=== PATIENT | female | born 1995 | race Caucasian/White ===

== ENCOUNTER 2020-05-17 23:33 | Emergency (ER) | payer MEDICAID, MEDICARE ==
[~2020-05-17] VITALS: Ht 165.1 cm; Wt 60.8 kg
[~2020-05-17 23:33] MED LIST: PREN-385 PO
--- NOTE | 2020-05-17 23:36 | NUR ---
pt ambulated to bed 6 and to the bathroom with a steady gait.
[2020-05-17 23:55] VITALS: BP 131/83
--- NOTE | 2020-05-18 | NUR ---
25 year old female coming in for episode of syncope x 1.5 hours. states does not remember the occurrence happening. pt fell head firts on toilet at home. area of trauma is right parietal region of the head. no obvious hematoma observed. pt is a/o x 4. PERRLA. no signs of neurocognitive deficit assessed. +headache and dizziness. denies any other s/sx. all other systems WNL. Dr. Yang made aware of the situation. pmhx: denies nka
--- NOTE | 2020-05-18 00:02 | NUR ---
EKG performed at by K. Physician given copy of EKG for review.
[2020-05-18 00:08] LABS: BASOPHILS % (AUTO) 0.4 % (0.0-2.0); EOSINOPHILS # (AUTO) 0.1 K/uL (0-0.4); EOSINOPHILS % (AUTO) 1.8 % (0.0-4.0); HEMATOCRIT 32.8 % (36-48); LYMPHOCYTES # (AUTO) 1.9 K/uL (2.5-16.5); LYMPHOCYTES % (AUTO) 30.1 % (20.5-51.1); MEAN CORPUSCULAR HEMOGLOBIN 27 pg (27-31); MEAN CORPUSCULAR HGB CONC 34 g/dL (33-37); MEAN CORPUSCULAR VOLUME 81.1 fL (80-94); MONOCYTES # (AUTO) 0.7 K/uL (0.8-1.0); MONOCYTES % (AUTO) 11.1 % (1.7-9.3); NEUTROPHILS # (AUTO) 3.5 K/uL (1.8-7.7); NEUTROPHILS % (AUTO) 56.6 % (42.2-75.2); PLATELET COUNT (AUTO) 211 K/uL (140-450); RED BLOOD CELL COUNT(AUTO) 4.04 MIL/uL (4.20-5.40); RED CELL DISTRIBUTION WIDTH 14.7 % (11.6-13.7); WHITE BLOOD COUNT (AUTO) 6.3 K/uL (4.8-10.8)
--- NOTE | 2020-05-18 00:16 | NUR ---
PT TAKEN TO CT VIA W/C.
[2020-05-18 00:17] LABS: CARBON DIOXIDE 26.3 mmol/L (21-32); CREATININE 0.5 mg/dL (0.6-1.3); POTASSIUM 3.3 mmol/L (3.5-5.1)
--- NOTE | 2020-05-18 00:26 | NUR ---
pt returned from CT
--- NOTE | 2020-05-18 00:45 | NUR ---
RECIVED PT A &O X 4. PT HAS C/O SALAZAR 02/05. PT REMAINS ON CARDIAC MONTIOR. PERRLA 3MM. PT ADMITS TO SENSITIVITY TO LIGHT. BED IS OCKED AND ON LOWEST POSTION.
[2020-05-18 01:09] LABS: PROTHROMBIN TIME 10.8 secs (10.8-13.4)
[2020-05-18 03:15] VITALS: BP 127/80
--- NOTE | 2020-05-18 03:15 | NUR ---
Patient discharged with v/s stable. Written and verbal after care instructions given and explained. Patient verbalized understanding. Ambulatory with steady gait. All questions addressed prior to discharge. Advised to follow up with PMD.
== END 2020-05-18 03:15 | disposition home or self-care (01) ==
LOC: MED 23:33
DX: R55 Syncope and collapse (principal); R51.9 Headache, unspecified; F17.200 Nicotine dependence, unspecified, uncomplicated; Z71.6 Tobacco abuse counseling; Z79.899 Other long term (current) drug therapy
CPT/HCPCS: 36415; 70450; 80048; 81025; 84484; 85025; 85379; 85610; 85730; 93005; 99285

== ENCOUNTER 2020-05-20 19:25 | Emergency (ER) | payer MEDICAID ==
[~2020-05-20] VITALS: Ht 165.1 cm; Wt 61.2 kg
[2020-05-20 19:38] VITALS: BP 127/94
--- NOTE | 2020-05-20 19:40 | NUR ---
To ED bed 12
--- NOTE | 2020-05-20 19:45 | NUR ---
25 YO F BIB SELF WITH C/C OF ABCESS ON RIGHT GROIN X1 MONTH WITH PAIN 10/10. PT DENIED TAKING MEDICATION FOR PAIN. ABCESS IS CLOSED, NO SIGNS OF IRRITATION, AND NO DRAINAGE. PT STATED PAIN AGGREVATES WITH WALKING AND ACTIVITY. BED LOCKED IN LOWEST POSITION, SIDE RAIL X1. HX: DENIES RX: DENIES
[2020-05-20] MEDS ORDERED: IBUPROFEN 800 MG TAB PO ONE (20:15)
[2020-05-20] MEDS ORDERED: CLINDAMYCIN 600 MG/4 ML VIAL IM ONE (20:15)
[2020-05-20] MEDS ORDERED: HYDROcodone/APAP 5/325 MG 1 TAB TAB PO ONE (20:15)
[2020-05-20] MEDS ORDERED: LIDOCAINE MPF 1% 5 ML ONE (20:18)
[2020-05-20] MEDS ORDERED: LIDOCAINE MPF 1% 20 ML ONE (20:24)
[2020-05-20] MEDS ORDERED: LIDOCAINE MPF 1% 10 MG/ML VIAL INJ ONE ×2 (20:45)
--- NOTE | 2020-05-20 21:04 | NUR ---
DISHA AT BEDSIDE PERFOMING I&D WITH VALENTIN ECHAVARRIA
--- NOTE | 2020-05-20 21:20 | NUR ---
PTS PAIN IS NOW 0/10.
[2020-05-20 21:32] VITALS: BP 141/81
--- NOTE | 2020-05-20 21:32 | NUR ---
Patient discharged with v/s stable. Written and verbal after care instructions given and explained. Patient alert, oriented and verbalized understanding of instructions. Ambulatory with steady gait. All questions addressed prior to discharge. ID band removed. Patient advised to follow up with PMD. Rx of MOTRIN, CLINDAMYCIN given. Patient educated on indication of medication including possible reaction and side effects. Opportunity to ask questions provided and answered.
== END 2020-05-20 21:32 | disposition home or self-care (01) ==
LOC: MED 19:25
DX: L02.214 Cutaneous abscess of groin (principal); F17.210 Nicotine dependence, cigarettes, uncomplicated; Z71.6 Tobacco abuse counseling; Z79.899 Other long term (current) drug therapy
CPT/HCPCS: 10060; 87075; 90471; 90715; 96372; 99284; J2001; J3490

== ENCOUNTER 2020-05-22 20:04 | Emergency (ER) | payer MEDICAID ==
[~2020-05-22] VITALS: Ht 162.6 cm; Wt 60.9 kg
[2020-05-22 20:21] VITALS: BP 135/97
--- NOTE | 2020-05-22 20:34 | NUR ---
PT WAS SEEN HERE 05/20/20 FOR I AND D OF ABSCESS TO R GROIN AREA. PACKING WAS PLACED AND PT TOLD TO COME BACK TODAY FOR RECHECK. PT STATES DISCHARGE IS YELLOW AND GREEN IN COLOR. PT C/O PAIN 05/08. PT WAS PROVIDED WITH PRESCRIPTION FRO ANTIBIOTICS AND HAS BEEN TAKING PRESCRIBED. PT PLACED IN GOWN, BED IN LOWEST POSITION AND SIDERAIL UP X 1. NKA NO HX
[2020-05-22] MEDS ORDERED: HYDROcodone/APAP 10/325 MG 1 TAB TAB PO PRN (20:40)
[2020-05-22] MEDS ORDERED: CLINDAMYCIN 600 MG/4 ML VIAL IM ONE (20:40)
[2020-05-22] MEDS ORDERED: IBUPROFEN 800 MG TAB PO ONE (20:40)
--- NOTE | 2020-05-22 21:03 | NUR ---
ASSISTED MD BAUTISTA BEDSIDE TO CHANGE PACKING. NEW DRESSING APPLIED TO SITE
[2020-05-22 21:11] VITALS: BP 135/97
== END 2020-05-22 21:10 | disposition home or self-care (01) ==
LOC: MED 20:04
DX: L02.214 Cutaneous abscess of groin (principal); Z79.899 Other long term (current) drug therapy; Z98.890 Other specified postprocedural states
CPT/HCPCS: 10060; 96372; 99283; J3490

== ENCOUNTER 2020-10-09 17:33 | Emergency (ER) | payer MEDICAID ==
[~2020-10-09] VITALS: Ht 165.1 cm; Wt 67.6 kg
[2020-10-09 17:38] VITALS: BP 161/98
--- NOTE | 2020-10-09 18:03 | NUR ---
PATIENT LEFT WITHOUT BEING SEEN BY DR. JOHNSON. NO FURTHER CARE PROVIDED FOR PATIENT.
--- NOTE | 2020-10-09 18:03 | NUR ---
CALLED PATIENT FOR A BED AND NO ON IN ER LOBBY AND NO ONE OUTSIDE IN PARKING LOT.
== END 2020-10-09 18:02 | disposition left against medical advice (07) ==
LOC: MED 17:33
DX: R56.9 Unspecified convulsions (principal); Z53.21 Procedure and treatment not carried out due to patient leaving prior to being seen by health care provider

== ENCOUNTER 2020-12-25 19:31 | Emergency (ER) | payer MEDICAID ==
[~2020-12-25] VITALS: Ht 165.1 cm; Wt 61.2 kg
[2020-12-25 19:38] VITALS: BP 143/87
[2020-12-25 20:26] LABS: BASOPHILS % (AUTO) 0.7 % (0.0-2.0); EOSINOPHILS # (AUTO) 0.3 K/uL (0-0.4); EOSINOPHILS % (AUTO) 3.7 % (0.0-4.0); HEMATOCRIT 32.2 % (36-48); HEMOGLOBIN 10.7 g/dL (12.0-16.0); LYMPHOCYTES # (AUTO) 3.1 K/uL (2.5-16.5); LYMPHOCYTES % (AUTO) 43.7 % (20.5-51.1); MEAN CORPUSCULAR HEMOGLOBIN 27 pg (27-31); MEAN CORPUSCULAR HGB CONC 33 g/dL (33-37); MEAN CORPUSCULAR VOLUME 81.8 fL (80-94); MONOCYTES # (AUTO) 0.8 K/uL (0.8-1.0); MONOCYTES % (AUTO) 10.7 % (1.7-9.3); NEUTROPHILS # (AUTO) 2.9 K/uL (1.8-7.7); NEUTROPHILS % (AUTO) 41.2 % (42.2-75.2); PLATELET COUNT (AUTO) 253 K/uL (140-450); RED BLOOD CELL COUNT(AUTO) 3.93 MIL/uL (4.20-5.40); RED CELL DISTRIBUTION WIDTH 15.3 % (11.6-13.7); WHITE BLOOD COUNT (AUTO) 7.1 K/uL (4.8-10.8)
[2020-12-25 20:35] LABS: ANION GAP 13.8 (8-16); CREATININE 0.6 mg/dL (0.6-1.3); POTASSIUM 3.8 mmol/L (3.5-5.1)
[2020-12-25 22:38] LABS: APPEARANCE,URINE HAZY (CLEAR); BILIRUBIN,URINE NEGATIVE (NEGATIVE); BLOOD, URINE TRACE-I (NEGATIVE); COLOR,URINE YELLOW (YELLOW); LEUKOCYTE ESTERASE ,URINE TRACE (NEGATIVE); NITRITE, URINE NEGATIVE (NEGATIVE); UGLUCOSE NEGATIVE (NEGATIVE)
[2020-12-25] MEDS ORDERED: NITR100C7 PO (22:44)
[2020-12-25 23:03] LABS: WBC,URINE 20-60 /HPF (0-5)
== END 2020-12-25 22:55 | disposition home or self-care (01) ==
LOC: MED 19:31
DX: O23.41 Unspecified infection of urinary tract in pregnancy, first trimester (principal); O26.891 Other specified pregnancy related conditions, first trimester; M54.5 Low back pain; Z79.899 Other long term (current) drug therapy
CPT/HCPCS: 36415; 76817; 80048; 81001; 81025; 84702; 85025; 86900; 86901; 87086; 99284

== ENCOUNTER 2023-05-12 01:00 | Emergency (ER) | payer MEDICAID ==
[~2023-05-12] VITALS: Ht 165.1 cm; Wt 65.8 kg
[~2023-05-12 01:00] MED LIST changes: +NITR100C7 PO
[2023-05-12 01:11] VITALS: BP 142/85; PULSE 102; RESP 16; TEMP 97.4; O2SAT 99
[2023-05-12] MEDS ORDERED: ACETAMINOPHEN 325 MG TAB PO ONE (02:00)
[2023-05-12 02:30] LABS: BASOPHILS % (AUTO) 0.5 % (0.0-2.0); EOSINOPHILS % (AUTO) 0.2 % (0.0-4.0); HEMATOCRIT 26.5 % (36-48); HEMOGLOBIN 8.5 g/dL (12.0-16.0); LYMPHOCYTES # (AUTO) 1.1 K/uL (2.5-16.5); LYMPHOCYTES % (AUTO) 16.4 % (20.5-51.1); MEAN CORPUSCULAR HEMOGLOBIN 23 pg (27-31); MEAN CORPUSCULAR HGB CONC 32 g/dL (33-37); MEAN CORPUSCULAR VOLUME 71.8 fL (80-94); MONOCYTES # (AUTO) 0.5 K/uL (0.8-1.0); MONOCYTES % (AUTO) 7.4 % (1.7-9.3); NEUTROPHILS # (AUTO) 4.9 K/uL (1.8-7.7); NEUTROPHILS % (AUTO) 75.5 % (42.2-75.2); PLATELET COUNT (AUTO) 292 K/uL (140-450); RED BLOOD CELL COUNT(AUTO) 3.69 MIL/uL (4.20-5.40); RED CELL DISTRIBUTION WIDTH 18.4 % (11.6-13.7); WHITE BLOOD COUNT (AUTO) 6.5 K/uL (4.8-10.8)
[2023-05-12 02:44] LABS: ALBUMIN 3.5 g/dL (3.4-5.0); ANION GAP 10.4 (8-16); CALCIUM 8.2 mg/dL (8.5-10.1); CARBON DIOXIDE 28.7 mmol/L (21-32); CREATININE 0.6 mg/dL (0.6-1.3); MAGNESIUM 1.9 mg/dL (1.8-2.4); POTASSIUM 3.1 mmol/L (3.5-5.1); TOTAL BILIRUBIN 0.3 mg/dL (0.0-1.0); TOTAL PROTEIN, SERUM 7.6 g/dL (6.4-8.2)
[2023-05-12 02:46] LABS: FLU A ANTIGEN negative (NEGATIVE); FLU B ANTIGEN negative (NEGATIVE)
[2023-05-12] MEDS ORDERED: POTASSIUM CHLORIDE 10 MEQ TABER PO ONE (02:55)
[2023-05-12] MEDS ORDERED: FERR325E14 PO (03:14)
[2023-05-12 03:40] VITALS: BP 134/87; PULSE 89; RESP 16; TEMP 97.4; O2SAT 100
== END 2023-05-12 03:40 | disposition home or self-care (01) ==
LOC: MED 01:00
DX: S00.03XA Contusion of scalp, initial encounter (principal); Z20.822 Contact with and (suspected) exposure to COVID-19; R56.9 Unspecified convulsions; E87.6 Hypokalemia; D64.9 Anemia, unspecified; X58.XXXA Exposure to other specified factors, initial encounter; Y93.89 Activity, other specified; Y92.89 Other specified places as the place of occurrence of the external cause; Y99.8 Other external cause status
CPT/HCPCS: 36415; 70450; 80053; 82550; 83735; 84703; 85025; 93005; 99284

== ENCOUNTER 2023-06-12 08:31 | Emergency (ER) | payer MEDICAID, OTHER ==
[~2023-06-12] VITALS: Ht 165.1 cm; Wt 66.7 kg
[~2023-06-12 08:31] MED LIST changes: +FERR325E14 PO
[2023-06-12 08:40] VITALS: BP 121/84; PULSE 98; RESP 20; TEMP 98.3; O2SAT 90
[2023-06-12] MEDS ORDERED: PROCHLORPERAZINE 10 MG/2 ML VIAL IVP ONE (08:55)
[2023-06-12] MEDS ORDERED: ACETAMINOPHEN EXTRA STRENGTH 500 MG TAB PO ONE (08:55)
[2023-06-12] MEDS ORDERED: NAPR-1704 PO (10:43)
[2023-06-12] MEDS ORDERED: PROC-87 PO (10:43)
[2023-06-12 10:59] VITALS: BP 121/84; PULSE 98; RESP 20; TEMP 98.3; O2SAT 90
== END 2023-06-12 10:58 | disposition home or self-care (01) ==
LOC: MED 08:31
DX: S09.90XA Unspecified injury of head, initial encounter (principal); R56.9 Unspecified convulsions; X58.XXXA Exposure to other specified factors, initial encounter; Y93.89 Activity, other specified; Y92.89 Other specified places as the place of occurrence of the external cause; Y99.8 Other external cause status
CPT/HCPCS: 70496; 81025; 96374; 99285; J0780; Q9967

== ENCOUNTER 2023-08-17 08:37 | Emergency (ER) | payer OTHER ==
[~2023-08-17] VITALS: Ht 167.6 cm; Wt 68.0 kg
[~2023-08-17 08:37] MED LIST changes: +NAPR-1704 PO; +PROC-87 PO
[2023-08-17 09:04] VITALS: BP 124/84; PULSE 111; RESP 22; TEMP 98; O2SAT 98
[2023-08-17 09:47] LABS: BASOPHILS % (AUTO) 0.6 % (0.0-2.0); EOSINOPHILS # (AUTO) 0.1 K/uL (0-0.4); EOSINOPHILS % (AUTO) 0.9 % (0.0-4.0); HEMATOCRIT 29.5 % (36-48); HEMOGLOBIN 9.6 g/dL (12.0-16.0); LYMPHOCYTES # (AUTO) 1.6 K/uL (2.5-16.5); LYMPHOCYTES % (AUTO) 24.7 % (20.5-51.1); MEAN CORPUSCULAR HEMOGLOBIN 25 pg (27-31); MEAN CORPUSCULAR HGB CONC 32 g/dL (33-37); MONOCYTES # (AUTO) 0.5 K/uL (0.8-1.0); MONOCYTES % (AUTO) 7.3 % (1.7-9.3); NEUTROPHILS # (AUTO) 4.3 K/uL (1.8-7.7); NEUTROPHILS % (AUTO) 66.5 % (42.2-75.2); PLATELET COUNT (AUTO) 306 K/uL (140-450); RED BLOOD CELL COUNT(AUTO) 3.83 MIL/uL (4.20-5.40); RED CELL DISTRIBUTION WIDTH 18.5 % (11.6-13.7); WHITE BLOOD COUNT (AUTO) 6.5 K/uL (4.8-10.8)
[2023-08-17 09:51] VITALS: BP 125/88; PULSE 100; RESP 13; TEMP 98
[2023-08-17 09:52] VITALS: O2SAT 96
[2023-08-17 10:01] LABS: ANION GAP 12.2 (8-16); CALCIUM 8.9 mg/dL (8.5-10.1); CARBON DIOXIDE 27.7 mmol/L (21-32); CREATININE 0.7 mg/dL (0.6-1.3); POTASSIUM 3.9 mmol/L (3.5-5.1)
[2023-08-17] MEDS ORDERED: MEDR10TA PO (10:58)
== END 2023-08-17 11:15 | disposition home or self-care (01) ==
LOC: MED 08:37
DX: R41.3 Other amnesia (principal); N93.8 Other specified abnormal uterine and vaginal bleeding; R42 Dizziness and giddiness; F17.200 Nicotine dependence, unspecified, uncomplicated; Z90.49 Acquired absence of other specified parts of digestive tract; Z86.69 Personal history of other diseases of the nervous system and sense organs; Z79.899 Other long term (current) drug therapy; Z79.1 Long term (current) use of non-steroidal anti-inflammatories (NSAID)
CPT/HCPCS: 36415; 80048; 81002; 81025; 85025; 99283

== ENCOUNTER 2023-09-28 21:10 | Emergency (ER) | payer OTHER ==
[~2023-09-28] VITALS: Ht 165.1 cm; Wt 65.8 kg
[~2023-09-28 21:10] MED LIST changes: +MEDR10TA PO
[2023-09-28 21:30] VITALS: BP 136/85; PULSE 66; RESP 18; TEMP 97.8; O2SAT 100
[2023-09-28 22:54] LABS: APPEARANCE,URINE CLEAR (CLEAR); BILIRUBIN,URINE NEGATIVE (NEGATIVE); BLOOD, URINE NEGATIVE (NEGATIVE); COLOR,URINE YELLOW (YELLOW); LEUKOCYTE ESTERASE ,URINE TRACE (NEGATIVE); NITRITE, URINE NEGATIVE (NEGATIVE); PROTEIN,URINE NEGATIVE (NEGATIVE); UGLUCOSE NEGATIVE (NEGATIVE); UROBILINOGEN,URINE 0.2 EU/dL (0.2 - 1)
[2023-09-28 23:05] LABS: AMPHETAMINE, URINE NEGATIVE ng/ml (NEG <=1000); BARBITURATE, URINE NEGATIVE ng/ml (NEG <=200); BENZODIAZEPINE, URINE NEGATIVE ng/mL (NEG <=200); CANNABINOID, URINE NEGATIVE ng/mL (NEG <=50); COCAINE, URINE NEGATIVE ng/mL (NEG <=300); OPIATE, URINE NEGATIVE ng/mL (NEG <=2000); PHENCYCLIDINE SCREEN,URINE NEGATIVE ng/mL (NEG <=25)
[2023-09-28 23:12] LABS: BACTERIA,URINE 1+ /HPF (None Seen); RBC,URINE 0-5 /HPF (0-5); SQUAMOUS EPITHELIAL CELL,UR 4-10 (MOD) /LPF (0-3 (FEW)); WBC,URINE 0-5 /HPF (0-5)
== END 2023-09-28 23:36 | disposition home or self-care (01) ==
LOC: MED 21:10
DX: R56.9 Unspecified convulsions (principal); Z79.899 Other long term (current) drug therapy
CPT/HCPCS: 80305; 81001; 81025; 99283

== ENCOUNTER 2024-04-11 09:51 | Emergency (ER) | payer OTHER ==
[~2024-04-11] VITALS: Ht 165.1 cm; Wt 64.5 kg
[2024-04-11 09:54] VITALS: BP 118/70; PULSE 103; RESP 16; TEMP 97.6; O2SAT 96
== END 2024-04-11 10:43 | disposition home or self-care (01) ==
LOC: MED 09:51
DX: R56.9 Unspecified convulsions (principal); F17.200 Nicotine dependence, unspecified, uncomplicated; Z79.899 Other long term (current) drug therapy
CPT/HCPCS: 82948; 99282